=== PATIENT | male | born 1965 | race Caucasian/White ===

== ENCOUNTER 2023-05-19 12:30 | Inpatient (IN) ==
[2023-05-19] MEDS ORDERED: PIPERACILLIN/TAZOBACTAM 4.5 GM in DEXTROSE 5% 100 ML IV ONE (13:33)
--- NOTE | 2023-05-19 13:34 | Emergency Department Note ---
Impression & Plan Complicated UTI (urinary tract infection), Hyponatremia, Thrombocytopenia, Cerebral palsy ED Provider Note NAME: BOBBI MAYA AGE: 57 SEX: M : 1965 ARRIVES VIA: Walk-In INFORMANT: Patient, ED PROVIDER(S): Kenji Brown MD CHIEF COMPLAINT: Abnormal outpatient urinalysis, DrSuha Referral MEDICAL DECISION MAKING: Patient presents for the above. I did review the patient's outpatient urine culture which showed ESBL. This is sensitive to ertapenem meropenem and Zosyn. The patient was ordered blood work blood cultures and a dose of IV Zosyn. To believe the patient would benefit from inpatient treatment given his chronic care needs complicated UTI and physical capacity. The patient does require significant care.Blood work shows mild leukopenia with mild anemia hemoglobin of 13. Thrombocytopenia at 89. The patient has had low platelet count in the past. Kidney function unremarkable with hyponatremia 133. Prior /Outside records reviewed: I reviewed the patient's most recent urine culture which does show ESBL that is only sensitive to ertapenem, meropenem and Zosyn Differential diagnosis: Complicated UTI, cystitis, pyelonephritis, pneumonia, bronchitis, electrolyte abnormality, dehydration among others were considered Diagnostics, as interpreted by me: ECG: None Cardiac monitoring: An order was placed for continuous cardiac monitoring. The monitor shows a rate of 77 with sinus rhythm. Patient was placed on pulse oximetry Medical decision rules: none Imaging studies: See below HPI: Patient presents with caregiver at bedside. Patient does have a known history of CP and is wheelchair-bound. The patient reportedly had some routine blood work and urine completed as an outpatient was called today to inform them that the urinalysis had an infection in it. They were told that they needed to come to the emergency department for antibiotics. The caregiver at bedside states that the patient has not had any change in symptoms. He does have a G- tube in place. Patient is wheelchair-bound and does not take anything by mouth. No reported falls or trauma. PAST MEDICAL HISTORY: See Below PAST SURGICAL HISTORY: See Below SOCIAL HISTORY: See Below HOME MEDICATIONS: See Below ALLERGIES: See Below VITALS: See Below PHYSICAL EXAMINATION: GENERAL: NAD, non-toxic. Wearing glasses. EYE EXAM: Normal conjunctiva. PERRL, no anisocoria and EOM's grossly intact w/o pain. OROPHARYNX: Moist mucus membranes, grossly normal dentition. NECK: Supple, no nuchal rigidity, no adenopathy, non-tender. No signs of meningismus. FROM of the neck with good chin to chest and neck extension. No stridor. LUNGS: Coarse breath sounds. Normal chest wall mechanics. HEART: NSR, no MRG. ABDOMEN: Abdomen soft, G-tube in the upper abdomen. Non-tender, no masses, no rebound or guarding. BACK: No CVA TTP. SKIN: No rashes and no bruising. UPPER EXTREMITIES: Upper extremities are grossly normal. LOWER EXTREMITIES: Grossly normal, no edema. NEURO EXAM: Awake and alert. Follows basic commands. Past Med/Surg History Medical History Cerebral palsy Epilepsy Feeding by G-tube GERD (gastroesophageal reflux disease) HLD (hyperlipidemia) Hypothyroidism Kidney stones Nocturnal hypoxia Recurrent UTI Thrombocytopenia Social History Smoking Status: Never smoker Second Hand Exposure: No; Hx Alcohol Use: No Hx Substance Use: No Preferred Language: Com[place]an Visual Impairment: Limited Hearing Ability: Hard of Hearing Beliefs That Will Affect Care: None marital status: Single current occupational status: unemployed Feels Safe at Home: Yes Diet: other Diet Comment: Feeding tube caffeine: No Dental Care, Regularly: Yes Physical Activity Frequency: Does not Exercise Seatbelt Use: always Allergies Allergies Allergy/AdvReac Type Severity Reaction Status Date / Time NSAIDS (Non-Steroidal AdvReac Unknown HX OF GI Verified 05/19/23 14:51 Anti-Inflamma BLEED Home Meds Home Medications Medication Instructions Recorded Confirmed OMEPRAZOLE 2MG/ML 40 mg G-tube BID 03/29/23 05/19/23 QC TUSSIN CF SYRUP 5 ml feeding tube Q4H PRN RUNNY 03/29/23 05/19/23 NOSE/COLDS SURECARE PRO UNDERWEAR XXL 03/29/23 05/06/23 acetaminophen 325 mg tablet 650 mg feeding tube Q6H PRN fever 03/29/23 05/19/23 or pain acetaminophen 650 mg rectal 650 mg TN Q6H PRN fever or pain 03/29/23 05/19/23 suppository alfuzosin 10 mg tablet,extended 10 mg QAM 03/29/23 05/19/23 release 24 hr bisacodyl 10 mg rectal suppository 10 mg TN DAILY PRN constipation 03/29/23 05/19/23 (Dulcolax (bisacodyl)) budesonide 0.5 mg/2 mL suspension 0.5 mg inhalation BID SOB 03/29/23 05/19/23 for nebulization citalopram 10 mg/5 mL oral solution 20 mg feeding tube HS DEPRESSION 03/29/23 05/19/23 lactulose 10 gram/15 mL oral 20 g feeding tube QAM CONSTIPATION 03/29/23 05/19/23 solution methenamine hippurate 1 gram tablet 1 g feeding tube BID BLADDER 03/29/23 05/19/23 phenobarbital 64.8 mg tablet 64.8 mg feeding tube HS SEIZURES 03/29/23 05/19/23 polyethylene glycol 3350 17 gram 17 g feeding tube QAM CONSTIPATION 03/29/23 05/19/23 oral powder packet valproic acid (as sodium salt) 250 500 mg feeding tube QDL MOOD 03/29/23 05/19/23 mg/5 mL oral solution valproic acid (as sodium salt) 250 750 mg PO BID MOOD 03/29/23 05/19/23 mg/5 mL oral solution atorvastatin 40 mg tablet 40 mg feeding tube HS CHOLESTEROL 05/19/23 05/19/23 dextromethorphan-guaifenesin 10 5 ml PO Q4H PRN COUGH/CONGESTION 05/19/23 05/19/23 mg-100 mg/5 mL oral syrup (Siltussin-DM) electrolytes-dextrose oral 170 ml feeding tube 5XD PRN UPSET 05/19/23 05/19/23 solution (Pedialyte oral solution) STOMACH/VOMITING--SEE NOTE furosemide 40 mg tablet 40 mg feeding tube QAM EDEMA 05/19/23 05/19/23 glycopyrrolate 1 mg tablet 1 mg feeding tube TID STOMACH 05/19/23 05/19/23 lactose-reduced food with fiber 237 ea feeding tube 5XD 05/19/23 05/19/23 0.06 gram-1.5 kcal/mL oral liquid (Jevity 1.5 Orlin) levothyroxine 200 mcg tablet 200 mcg feeding tube DAILYBB 05/19/23 05/19/23 THYROID levothyroxine 25 mcg tablet 25 mcg feeding tube DAILYBB THYROID 05/19/23 05/19/23 loratadine 10 mg tablet 10 mg feeding tube QAM ALLERGIES 05/19/23 05/19/23 metoclopramide HCl 10 mg tablet 10 mg feeding tube QID 05/19/23 05/19/23 montelukast 10 mg tablet 10 mg feeding tube HS asthma 05/19/23 05/19/23 [id number] gluconate 9 15 ml feeding tube QAM SUPPLEMENT 05/19/23 05/19/23 mg iron/15 mL (15 mL) oral liquid (Multi-Patrice) water 60 ea 5XD 05/19/23 05/19/23 zinc oxide 13 % topical cream 1 applic topical BID 05/19/23 05/19/23 Previous Rx's Medication Instructions Recorded 2xl pull up briefs #1 ea 03/29/23 Shaun-Hawthorne Gastrostomy Feeding Tube #1 ea 03/29/23 Suction Machine, Canisters, #1 ea 03/29/23 Tubing, and Yankeur 2x2 drain sponges #1 ea 04/08/23 2xl tabbed attends #1 ea 04/08/23 Disposable chucks #1 ea 04/08/23 Hospital Bed Mattress #1 ea 04/08/23 Hospital bed with 4 railings #1 ea 04/08/23 Jam Lift and extra sling #1 ea 04/08/23 Lymphedema boots #1 ea 04/08/23 Shaun-Hawthorne Bolus Feed Extension set #1 ea 04/08/23 Mouth Swabs #1 ea 04/08/23 Nebulizer Machine, Mask, Tubing #1 ea 04/08/23 Oxygen Concentrator, Nasal #1 ea 04/08/23 Cannulas, Water Bottles SURECARE BRIEF XL #1 ea 04/08/23 XL shena w/ handles for #1 ea 04/08/23 repositioning washable chucks #1 04/08/23 Results & Data (ED) Vital Signs Vital Signs - 24 hr 05/19/23 12:45 05/19/23 14:50 Temperature 36.6 C Temperature Source Temporal Artery Scan Pulse Rate 83 Pulse Rate [Finger] 74 Respiratory Rate 16 16 Respiratory Effort / Characteristics Non-Labored Non-Labored Spontaneous Respiratory Depth Normal Normal Respiratory Pattern Regular Blood Pressure 133/84 Blood Pressure [Right Arm] 163/92 H Blood Pressure Mean 100 Blood Pressure Mean [Right Arm] 115 Pulse Oximetry 93 95 Oxygen Delivery Method Room Air Room Air Sepsis Recent Fever Within 48 Hours No Sepsis New/Unexplained Change in Mental Status No Sepsis Action Taken by Nursing No Action Required Home Medications Current Medication List: was personally reviewed by me Laboratory Data Attestation: I reviewed the patient's lab results. 05/19/23 13:30 05/19/23 13:30 Lab Results 05/19/23 05/19/23 Range/Units 13:30 13:30 WBC 3.67 L (4.8-10.8) K/ul RBC 4.37 L (4.70-6.10) M/uL Hgb 13.2 L (14.0-18.0) g/dl Hct 39.2 L (42.0-52.0) % MCV 89.7 (80.0-100.0) fL MCH 30.2 (25.0-34.0) pg MCHC 33.7 (32.0-36.0) g/dL RDW Std Deviation 44.9 (36.4-46.3) fL RDW Coeff of Diane 13.8 (11.5-14.5) % Plt Count 89 L (130-400) K/uL MPV 14.5 H (9.4-12.4) fL Immature Gran % (Auto) 0.3 % Neut % (Auto) 67.2 % Lymph % (Auto) 18.0 % [place] % (Auto) 13.1 % Eos % (Auto) 1.1 % Baso % (Auto) 0.3 % Neut # (Auto) 2.47 (1.40-6.50) K/uL Lymph # (Auto) 0.66 L (1.2-3.4) K/uL [place] # (Auto) 0.48 (0.11-0.59) K/uL Eos # (Auto) 0.04 (0-0.50) K/uL Baso # (Auto) 0.01 (0-0.2) K/uL Immature Gran # (Auto) 0.01 (0.01-0.20) K/uL Sodium 133 L (136-145) mmol/L Potassium 4.0 (3.5-5.1) mmol/L Chloride 97 L (98-107) mmol/L Carbon Dioxide 31 (21-32) mmol/L Anion Gap 5 (3-11) BUN 18 (6-23) mg/dl Creatinine 0.48 L (0.6-1.4) mg/dl Est Cr Clr Drug Dosing Not Reportable Est GFR ( Amer) 143.8 ml/min Est GFR (Non-Af Amer) 124.1 ml/min BUN/Creatinine Ratio 37.5 H (10-20) Glucose 93 (70-99(Fasting)) mg/dl Calcium 9.3 (8.6-10.3) mg/dl Total Bilirubin 0.3 (0.2-1.0) mg/dl AST 16 (13-39) U/L ALT 11 (7-52) U/L Alkaline Phosphatase 72 (34-104) U/L Total Protein 7.2 (6.0-8.3) gm/dl Albumin 3.5 (3.4-5.0) gm/dl Globulin 3.7 (2.5-4.0) gm/dl Albumin/Globulin Ratio 0.9 (0.9-2) Administered Medications Discontinued Medications Piperacillin Sod/Tazobactam (Sod 4.5 gm/ Dextrose) 120 mls @ 200 mls/hr IV NOW ONE; Protocol Stop: 05/19/23 14:08 Last Infusion: 05/19/23 14:52 Dose: 0 mls/hr Documented By: Admin: 05/19/23 14:09 Dose: 200 mls/hr Documented By: RUPAL Ertapenem (Invanz) 10 mls @ 2 mls/min IV NOW STA Stop: 05/19/23 14:27 Last Admin: 05/19/23 14:46 Dose: Not Given Documented By: RUPAL Discharge Plan Visit Data Chief Complaint: Urinary Symptoms Stated Complaint: URINARY TRACT INFECTION - REFERRED BY MD ED Provider: Kenji Brown Discharge Problem: Complicated UTI (urinary tract infection), Hyponatremia, Thrombocytopenia, Ce rebral palsy Forms Stand Alone Forms: [facility] Prescriptions Prescriptions: No Action budesonide 0.5 mg/2 mL suspension for nebulization 0.5 mg inhalation BID Rx Instructions: DAILY AT 08:00, DAILY AT 20:00 citalopram 10 mg/5 mL solution 20 mg feeding tube HS Rx Instructions: GIVE 10ML (20MG) VIA G-TUBE ONCE DAILY AT BEDTIME FOR DEPRESSION *USE STOPPERS* DAILY AT 20:00 lactulose 10 gram/15 mL solution 20 g feeding tube QAM Rx Instructions: TAKE 30mL (20GM)VIA G-TUBE ONCE DAILY FOR CONSTIPATION. DAILY AT 08:00 methenamine hippurate 1 gram tablet 1 g feeding tube BID Rx Instructions: TAKE 1 TABLET VIA G-TUBE TWICE DAILY FOR BLADDER. DAILY AT 08:00 AND DAILY 20:00 OMEPRAZOLE 2MG/ML liquid 40 mg G-tube BID Rx Instructions: GIVE 20ML VIA G-TUBE BID. DAILY AT 08:00 AND DAILY AT 20:00 polyethylene glycol 3350 17 gram powder in packet 17 g feeding tube QAM Rx Instructions: MIX 1 CAPFUL (17CM) WITH 8OZ OF WATER AND GIVE VIA PEG ONCE DAILY FOR CONSTIPATION DAILY AT 08:00 valproic acid (as sodium salt) 250 mg/5 mL solution 500 mg feeding tube QDL Rx Instructions: GIVE 10ML VIA G-TUBE ONCE DAILY AT NOON FOR MOOD DAILY AT 12:00 valproic acid (as sodium salt) 250 mg/5 mL solution 750 mg PO BID Rx Instructions: GIVE 15ML VIA G-TUBE TWICE DAILY IN THE AM AND EVENING FOR MOOD DAILY AT 08:00 AND AT 20:00 acetaminophen 650 mg suppository 650 mg TN Q6H PRN (Reason: fever or pain) Rx Instructions: INSERT 1 SUPPOSITORY RECTALLY EVERY 6 HOURS NEEDED FOR PAIN OR FEVER MAX 3GM APAP/24HRS bisacodyl [Dulcolax (bisacodyl)] 10 mg suppository 10 mg TN DAILY PRN (Reason: constipation) Rx Instructions: INSERT 1 SUPPOSITORY RECTALLY EVERY 4TH NIGHT NEEDED FOR CONSTIPATION REPEAT IN 24HOURS IF NO BOWEL MOVEMENT QC TUSSIN CF SYRUP 5 ml feeding tube Q4H PRN (Reason: RUNNY NOSE/COLDS) Rx Instructions: GIVE 5mL via G-tube every 4 hours as needed for runny nose,colds. DO NOT USE WITH SANDRA HUTCHISON [place] [place] SURECARE PRO UNDERWEAR XXL See Rx Instructions .Route .MEDSUPPLY Rx Instructions: USE 3-4 TIMES DAILY 4PK/CS (DME) Shaun-Hawthorne Gastrostomy Feeding Tube See Rx Instructions .Route .MEDSUPPLY Qty: 1 0RF Rx Instructions: As directed (DME) Suction Machine, Canisters, Tubing, and Yankeur See Rx Instructions .Route .MEDSUPPLY Qty: 1 0RF Rx Instructions: As directed ([facility] [place]) 2xl pull up briefs See Rx Instructions .Route .MEDSUPPLY Qty: 1 0RF Rx Instructions: As directed acetaminophen 325 mg tablet 650 mg feeding tube Q6H MDD 3 GRAMS APAP/24 HOURS PRN (Reason: fever or pain) Rx Instructions: TAKE 2 TABLETS VIA G-TUBE EVERY 6 HOURS NEEDED FOR PAIN OR FEVER >100F ORAL/ TYMPANICE OR >99F AXILLARY MAX 3GM APAP/24HRS *CRUSHED* alfuzosin 10 mg tablet extended release 24 hr 10 mg QAM Rx Instructions: CRUSHED VIA FEEDING TUBE. phenobarbital 64.8 mg tablet 64.8 mg feeding tube HS Rx Instructions: TAKE 1 TABLET VIA G-TUBE ONCE DAILY AT 20:00 *CRUSHED* ([facility] [place]) Hospital bed with 4 railings See Rx Instructions .Route .MEDSUPPLY Qty: 1 0RF Rx Instructions: Pt needs to keep all 4 railings up on bed to help with repositioning. Will need checked on every 1 hour. ([facility] [place]) 2x2 drain sponges See Rx Instructions .Route .MEDSUPPLY Qty: 1 0RF Rx Instructions: As directed ([facility] [place]) 2xl tabbed attends See Rx Instructions .Route .MEDSUPPLY Qty: 1 0RF Rx Instructions: As directed ([facility] [place]) Disposable chucks See Rx Instructions .Route .MEDSUPPLY Qty: 1 0RF Rx Instructions: As directed ([facility] [place]) Hospital Bed Mattress See Rx Instructions .Route .MEDSUPPLY Qty: 1 0RF Rx Instructions: As directed ([facility] [place]) Jam Lift and extra sling See Rx Instructions .Route .MEDSUPPLY Qty: 1 0RF Rx Instructions: As directed ([facility] [place]) Lymphedema boots See Rx Instructions .Route .MEDSUPPLY Qty: 1 0RF Rx Instructions: As directed ([facility] [place]) Shaun-Hawthorne Bolus Feed Extension set See Rx Instructions .Route .MEDSUPPLY Qty: 1 0RF Rx Instructions: As directed ([facility] [place]) Mouth Swabs See Rx Instructions .Route .MEDSUPPLY Qty: 1 0RF Rx Instructions: As directed ([facility] [place]) Oxygen Concentrator, Nasal Cannulas, Water Bottles See Rx Instructions .Route .MEDSUPPLY Qty: 1 0RF Rx Instructions: As directed ([facility] [place]) Nebulizer Machine, Mask, Tubing See Rx Instructions .Route .MEDSUPPLY Qty: 1 0RF Rx Instructions: As directed (DME) XL shena w/ handles for repositioning See Rx Instructions .Route .MEDSUPPLY Qty: 1 0RF Rx Instructions: As directed (DME) washable chucks See Rx Instructions .Route .MEDSUPPLY Qty: 1 0RF Rx Instructions: As directed (DME) SURECARE BRIEF XL See Rx Instructions .Route .MEDSUPPLY Qty: 1 0RF Rx Instructions: USE 3-4 TIMES DAILY 5PK/CS dextromethorphan-guaifenesin [Siltussin-DM] 10-100 mg/5 mL Syrup 5 ml PO Q4H PRN (Reason: COUGH/CONGESTION) water Liquid 60 ea 5XD Rx Instructions: VIA G-TUBE 60 ML AT 0000, 0800, 1200, 1600 & 2000 Desitin Rapid Relief 13 % Cream 1 applic TOPICAL BID glycopyrrolate 1 mg tablet 1 mg feeding tube TID Rx Instructions: 0800, 1600, & 2000 furosemide 40 mg tablet 40 mg feeding tube QAM Rx Instructions: TAKE 1 TABLET VIA G-TUBE ONCE DAILY FOR EDEMA DAILY AT 08:00 *CRUSHED* atorvastatin 40 mg tablet 40 mg feeding tube HS Rx Instructions: *CRUSHED* Jevity 1.5 Orlin 0.06 gram-1.5 kcal/mL liquid 237 ea feeding tube 5XD Rx Instructions: via feeding tube DAILY AT 00:00, 08:00, 12:00, 16:00, 20:00; Give Jevity 1.5, 237ml 5 times daily. Free water flushes of 60ml before and 60ml after each feeding. electrolytes-dextrose [Pedialyte] Solution 170 ml feeding tube 5XD PRN (Reason: UPSET STOMACH/VOMITING--SEE NOTE) Rx Instructions: GIVE 170 ML VIA G-TUBE 5 XDAILY FOR 24 HOURS, THEN 90 ML 5XDAILY FOR NEXT 24 HOURS. levothyroxine 25 mcg tablet 25 mcg feeding tube DAILYBB Rx Instructions: TAKE 1 TABLET VIA G-TUBE ONCE DAILY FOR THYROID- TAKE WITH 200MCG. DAILY AT 05:00 *CRUSHED* montelukast 10 mg tablet 10 mg feeding tube HS Rx Instructions: take 1 tablet via g-tube once daily in the evenings for asthma DAILY AT 20:00 *CRUSHED* levothyroxine 200 mcg tablet 200 mcg feeding tube DAILYBB Rx Instructions: TAKE 1 TAB VIA G-TUBE ONCE DAILY FOR THYROID DAILY AT 05:00 *CRUSHED* loratadine 10 mg tablet 10 mg feeding tube QAM Rx Instructions: TAKE 1 TABLET VIA G-TUBE ONCE DAILY FOR ALLERGIES. DAILY AT 08:00 *CRUSHED* metoclopramide HCl 10 mg tablet 10 mg feeding tube QID Rx Instructions: TAKE 1 TABLET VIA G-TUBE FOUR TIMES DAILY AT 8AM, 12PM, 4PM, AND 8PM FOR STOMACH *CRUSHED* smnuwvpp-ple-qxouazp gluconate [Multi-Patrice] 9 mg iron/ 15 mL (15 mL) liquid 15 ml feeding tube QAM Rx Instructions: GIVE 15mL VIA G-TUBE ONCE DAILY FOR SUPPLEMENT DAILY AT 08:00 Referrals Referrals: Eva Lin DO [Primary Care Provider] -
[2023-05-19 13:57] LABS: Basophils # (auto) 0.01 K/uL (0-0.2); Basophils % (auto) 0.3 %; Eosinophils # (auto) 0.04 K/uL (0-0.50); Eosinophils % (auto) 1.1 %; Hematocrit (blood only) 39.2 % (42.0-52.0); Hemoglobin 13.2 g/dl (14.0-18.0); Immature Granulocytes # (auto) 0.01 K/uL (0.01-0.20); Immature Granulocytes % (auto) 0.3 %; Lymphocytes # (auto) 0.66 K/uL (1.2-3.4); Mean Corpuscular Hemoglobin 30.2 pg (25.0-34.0); Mean Corpuscular Hgb Conc 33.7 g/dL (32.0-36.0); Mean Corpuscular Volume 89.7 fL (80.0-100.0); Mean Platelet Volume 14.5 fL (9.4-12.4); Monocytes # (auto) 0.48 K/uL (0.11-0.59); Monocytes % (auto) 13.1 %; Neutrophils # (auto) 2.47 K/uL (1.40-6.50); Neutrophils % (auto) 67.2 %; Platelet Count 89 K/uL (130-400); RDW Coefficient of Variation 13.8 % (11.5-14.5); RDW Standard Deviation 44.9 fL (36.4-46.3); Red Blood Count 4.37 M/uL (4.70-6.10); White Blood Count 3.67 K/ul (4.8-10.8)
[2023-05-19 14:18] LABS: Alanine Aminotransferase 11 U/L (7-52); Albumin Globulin Ratio 0.9 (0.9-2); Albumin Level 3.5 gm/dl (3.4-5.0); Alkaline Phosphatase 72 U/L (34-104); Anion Gap 5 (3-11); BUN Creatinine Ratio 37.5 (10-20); Bilirubin,Total 0.3 mg/dl (0.2-1.0); Blood Urea Nitrogen 18 mg/dl (6-23); Calcium 9.3 mg/dl (8.6-10.3); Carbon Dioxide 31 mmol/L (21-32); Chloride 97 mmol/L (98-107); Est GFR (African American) 143.8 ml/min; Est GFR (Non-African American) 124.1 ml/min; Globulin 3.7 gm/dl (2.5-4.0); Glucose 93 mg/dl (70-99(Fasting)); Sodium 133 mmol/L (136-145); Total Protein 7.2 gm/dl (6.0-8.3)
[2023-05-19] MEDS ORDERED: ERTAPENEM SODIUM 10 ML IV STA (14:23)
[2023-05-19 14:28] LABS: Aspartate Aminotransferase 16 U/L (13-39)
--- NOTE | 2023-05-19 14:44 | History & Physical Report ---
Date of Service May 19, 2023 Assessment & Plan (1) Complicated UTI (urinary tract infection): Plan: Complicated UTI, history of recurrent UTIs Leukopenic, thrombocytopenic at baseline UA 05/17 resulted ESBL Klebsiella, sensitive to Zosyn, ertapenem, meropenem. E mpirically treated with Zosyn,? Fosfomycin for discharge Patient with increased voiding frequency, small volume voids No fever/chills. Nontoxic on assessment. 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 Platelets have been relatively stable, patient is continued on valproic acid for seizure prevention No active bleeding, continue to monitor - Heparin for DVT PPx deferred Epilepsy Stable, pending establishing with local neurology as outpatient No recent seizures in the last year. Continued on home valproic acid, phenobarbital Seizure precautions Ativan 2 mg every 5 minutes up to 3 doses per episode if acute seizure develops Chronic hyponatremia Resolved at prior 05/06 follow-up Currently mildly hyponatremic, trend daily. Reduce free water flushes if needed/contract Hypothyroidism Continue Synthroid GERD PPI continued CP, G-tube placement Mostly wheelchair-bound, does not ambulate. Max assist for transfers Fall precautions [place] precautions Continue feedings through PEG tube. Continue free water flush 60 cc 5 times daily Nocturnal hypoxia Chronically on 1 L of oxygen at night Disposition: Medical surgical Diet: N.p.o., feeds through G-tube CODE STATUS: DNR/DNI. In the event of an emergency notify skilled facility Laure is primary point of contact available at [phone] for decision making (2) Cerebral palsy: (3) Feeding by G-tube: (4) Thrombocytopenia: (5) Epilepsy: (6) Kidney stones: History of Present Illness Primary Care Provider: DO Bryce Garcia is a 57-year-old male with a past medical history of cerebral palsy, G-tube feeding, hypothyroidism, GERD, hyperlipidemia, epilepsy, and kidney stones who presents for urinary symptoms and ESBL UTI. Bharathi was seen as an outpatient for increased frequency of low volume voids, this grew out ESBL was recommended to come into the hospital for further treatment. Due to his medical complexity, neutropenia, high needs was recommended for initial observation overnight rather than treatment with fosfomycin and discharged home. Case was discussed with skilled facility who due to their challenges with sepsis and limited resources request that he be observed overnight for stability prior to discharge back to their facility. History is limited due to CP. Bryce is nondistressed and does not appear toxic at the bedside. Case was discussed with his editorial writer who recently received guardianship of Bryce, and know if any emergencies develop while his sister/niece sometimes help with decision making the point of contact should be the skilled facility nurse Laure available at [phone]. Per editorial writer with Bryce they note that he has not had any seizures recently, no fevers, does not seem distressed or having chills. He has had increased frequency of voids in the last week, this happens sometimes but they are with less volume in the last week than normal. Otherwise have not noticed any new symptoms. Meds reconciled by list provided at time of admission. He does have a history of thrombocytopenia and leukopenia which is pending follow-up with oncology Dr. Doty as outpatient. He is also pending outpatient visit with [facility] neurology for a past history of seizures, caseworkers not sure when his last seizure was only that he has not had any since coming to their facility approximately a year ago. Medical History: Reviewed Medications: Reviewed Surgical History: Reviewed Family history: Reviewed Allergies: Reviewed Social History: Reviewed, no substance use Code Status: DNR/DNI, patient has a living will confirming Allergies Allergy/AdvReac Type Severity Reaction Status Date / Time NSAIDS (Non-Steroidal AdvReac Unknown HX OF GI Verified 05/19/23 14:51 Anti-Inflamma BLEED Home Medications Medication Instructions Recorded Confirmed Type 2xl pull up briefs #1 ea 03/29/23 05/06/23 Rx Shaun-Hawthorne Gastrostomy Feeding Tube #1 ea 03/29/23 05/06/23 Rx OMEPRAZOLE 2MG/ML 40 mg G-tube BID 03/29/23 05/19/23 History QC TUSSIN CF SYRUP 5 ml feeding tube Q4H PRN RUNNY 03/29/23 05/19/23 History NOSE/COLDS SURECARE PRO UNDERWEAR XXL 03/29/23 05/06/23 History Suction Machine, Canisters, #1 ea 03/29/23 05/06/23 Rx Tubing, and Yankeur acetaminophen 325 mg tablet 650 mg feeding tube Q6H PRN fever 03/29/23 05/19/23 History or pain acetaminophen 650 mg [address] Q6H PRN fever or pain 03/29/23 05/19/23 History suppository alfuzosin 10 mg tablet,extended 10 mg QAM 03/29/23 05/19/23 History release 24 hr bisacodyl 10 mg rectal suppository [address] DAILY PRN constipation 03/29/23 05/19/23 History (Dulcolax (bisacodyl)) budesonide 0.5 mg/2 mL suspension 0.5 mg inhalation BID SOB 03/29/23 05/19/23 History for nebulization citalopram 10 mg/5 mL oral solution 20 mg feeding tube HS DEPRESSION 03/29/23 05/19/23 History lactulose 10 gram/15 mL oral 20 g feeding tube QAM CONSTIPATION 03/29/23 05/19/23 History solution methenamine hippurate 1 gram tablet 1 g feeding tube BID BLADDER 03/29/23 05/19/23 History phenobarbital 64.8 mg tablet 64.8 mg feeding tube HS SEIZURES 03/29/23 05/19/23 History polyethylene glycol 3350 17 gram 17 g feeding tube QAM CONSTIPATION 03/29/23 05/19/23 History oral powder packet valproic acid (as sodium salt) 250 500 mg feeding tube QDL MOOD 03/29/23 05/19/23 History mg/5 mL oral solution valproic acid (as sodium salt) 250 750 mg PO BID MOOD 03/29/23 05/19/23 History mg/5 mL oral solution 2x2 drain sponges #1 ea 04/08/23 05/06/23 Rx 2xl tabbed attends #1 ea 04/08/23 05/06/23 Rx Disposable chucks #1 ea 04/08/23 05/06/23 Rx Hospital Bed Mattress #1 ea 04/08/23 05/06/23 Rx Hospital bed with 4 railings #1 ea 04/08/23 05/06/23 Rx Jam Lift and extra sling #1 ea 04/08/23 05/06/23 Rx Lymphedema boots #1 ea 04/08/23 05/06/23 Rx Shaun-Hawthorne Bolus Feed Extension set #1 ea 04/08/23 05/06/23 Rx Mouth Swabs #1 ea 04/08/23 05/06/23 Rx Nebulizer Machine, Mask, Tubing #1 ea 04/08/23 05/06/23 Rx Oxygen Concentrator, Nasal #1 ea 04/08/23 05/06/23 Rx Cannulas, Water Bottles SURECARE BRIEF XL #1 ea 04/08/23 05/06/23 Rx XL shena w/ handles for #1 ea 04/08/23 05/06/23 Rx repositioning washable chucks #1 ea 04/08/23 05/06/23 Rx atorvastatin 40 mg tablet 40 mg feeding tube HS CHOLESTEROL 05/19/23 05/19/23 History dextromethorphan-guaifenesin 10 5 ml PO Q4H PRN COUGH/CONGESTION 05/19/23 05/19/23 History mg-100 mg/5 mL oral syrup (Siltussin-DM) electrolytes-dextrose oral 170 ml feeding tube 5XD PRN UPSET 05/19/23 05/19/23 History solution (Pedialyte oral solution) STOMACH/VOMITING--SEE NOTE furosemide 40 mg tablet 40 mg feeding tube QAM EDEMA 05/19/23 05/19/23 History glycopyrrolate 1 mg tablet 1 mg feeding tube TID STOMACH 05/19/23 05/19/23 History lactose-reduced food with fiber 237 ea feeding tube 5XD 05/19/23 05/19/23 History 0.06 gram-1.5 kcal/mL oral liquid (Jevity 1.5 Orlin) levothyroxine 200 mcg tablet 200 mcg feeding tube DAILYBB 05/19/23 05/19/23 History THYROID levothyroxine 25 mcg tablet 25 mcg feeding tube DAILYBB THYROID 05/19/23 05/19/23 History loratadine 10 mg tablet 10 mg feeding tube QAM ALLERGIES 05/19/23 05/19/23 History metoclopramide HCl 10 mg tablet 10 mg feeding tube QID 05/19/23 05/19/23 History montelukast 10 mg tablet 10 mg feeding tube HS asthma 05/19/23 05/19/23 History knidgord-ajgj-swzlmca gluconate 9 15 ml feeding tube QAM SUPPLEMENT 05/19/23 05/19/23 History mg iron/15 mL (15 mL) oral liquid (Multi-Patrice) water 60 ea 5XD 05/19/23 05/19/23 History zinc oxide 13 % topical cream 1 applic topical BID 05/19/23 05/19/23 History Past Med/Surg History Medical History (Updated 05/19/23 @ 15:29 by Sandip Kuhn MD) Cerebral palsy Epilepsy Feeding by G-tube GERD (gastroesophageal reflux disease) HLD (hyperlipidemia) Hypothyroidism Kidney stones Nocturnal hypoxia Recurrent UTI Thrombocytopenia Social History (Updated 03/29/23 @ 09:08 by Yesi Meza LPN) Smoking Status: Never smoker Second Hand Exposure: No; Hx Alcohol Use: No Hx Substance Use: No Preferred Language: Luxembourgish Visual Impairment: Limited Hearing Ability: Hard of Hearing Beliefs That Will Affect Care: None marital status: Single current occupational status: unemployed Feels Safe at Home: Yes Diet: other Diet Comment: Feeding tube caffeine: No Dental Care, Regularly: Yes Physical Activity Frequency: Does not Exercise Seatbelt Use: always Physical Exam Physical Exam: General: Communication limited by intellectual disability. No acute distress HEENT: Atraumatic, vision and hearing grossly intact Pulm: Diminished, but without overt wheezes/rales symmetrical chest rise. No increased work of breathing. No respiratory distress. Cardiac: RRR, -mrg. Radial pulses intact and symmetrical. Abdominal: Nontender, nondistended, soft. BS present. PEG tube present Extremities: CP. Exam limited by intellectual disability Results & Data Results & Data Vital Signs (Past 12 Hours) Vital Signs Temp Pulse Resp BP Pulse Ox O2 Del Method 05/19/23 12:45 36.6 C 83 16 133/84 93 Room Air PG Care Time/CCT Total # of Minutes Spent Total Time Spent with Patient: Total time spent is greater than 50% in coordination of care (as documented) at patient's floor/unit and/or counseling patient: Coding Level of Care Code 95893 INT INP/OBS CARE 3/75MIN Diagnoses Complicated UTI (urinary tract infection) N39.0 Cerebral palsy G80.9 Feeding by G-tube Z93.1 Thrombocytopenia D69.6 Epilepsy G40.909 Kidney stones N20.0
[2023-05-19 16:45] LABS: Adenovirus PCR Not Detected (NotDetected); Bordetella parapertussis PCR Not Detected (NotDetected); Bordetella pertussis PCR Not Detected (NotDetected); Chlamydia pneumoniae PCR Not Detected (NotDetected); Coronavirus 229E PCR Not Detected (NotDetected); Coronavirus CoV-2 (COVID19)PCR Not Detected (NotDetected); Coronavirus HKU1 PCR Not Detected (NotDetected); Coronavirus NL63 PCR Not Detected (NotDetected); Coronavirus OC43PCR Not Detected (NotDetected); Human Metapneumovirus PCR Not Detected (NotDetected); Influenza A PCR Not Detected (NotDetected); Influenza B PCR Not Detected (NotDetected); Mycoplasma pneumoniae PCR Not Detected (NotDetected); Parainfluenza Virus 1 PCR Not Detected (NotDetected); Parainfluenza Virus 2 PCR Not Detected (NotDetected); Parainfluenza Virus 3 PCR Not Detected (NotDetected); Parainfluenza Virus 4 PCR Not Detected (NotDetected); Respiratory Syncytial VirusPCR Not Detected (NotDetected); Rhinovirus/Enterovirus PCR Not Detected (NotDetected)
[2023-05-19] MEDS: Patient's HEIGHT &/or WEIGHT Needed SCH ×4 (17:39→23:15)
[2023-05-19] MEDS ORDERED: guaiFENesin/DEXTROM SYRUP 100MG/10MG 5ML UDC PO PRN (18:07)
[2023-05-19] MEDS ORDERED: bisacodyL 10 MG SUPP PR PRN (18:07)
[2023-05-19] MEDS: BUDESONIDE 0.5 MG/2 ML VIAL (PULMICORT) NEB SCH (19:08)
[2023-05-19 20:27] LABS: Appearance Urine Clear (Clear); Bacteria Urine Automated Negative (Negative); Bilirubin Urine Negative (Negative); Blood Urine Negative (Negative); Cast Urine Automated 0 /lpf (0-5); Color Urine Dark Yellow; Glucose Urine UA Negative (Negative); Ketones Urine Trace (Negative); Leukocyte Esterase Urine 1+ (Negative); Nitrite Urine Negative (Negative); Protein Urine Negative (Negative); RBC Urine Automated 0-4 /hpf (0-4); Specific Gravity Urine 1.024 (1.000-1.030); Urobilinogen Urine Negative (Negative)
[2023-05-19] MEDS ORDERED: PHENobarbitaL 20 MG/5 ML PO SCH (21:00)
[2023-05-19] MEDS: PIPERACILLIN/TAZOBACTAM 4.5 GM in DEXTROSE 5% 100 ML IV SCH (22:36)
[2023-05-19] MEDS: METOCLOPRAMIDE HCL 10 MG TABLET PEG SCH ×2 (22:39→22:49)
[2023-05-19] MEDS: TUBE FEEDING WATER FLUSH GT SCH (22:39)
[2023-05-19] MEDS: ATORVASTATIN 40 MG TAB PEG SCH (22:47)
[2023-05-19] MEDS: GLYCOPYRROLATE 1 MG TAB PO SCH (22:48)
[2023-05-19] MEDS: MONTELUKAST SODIUM 10 MG TABLET PEG SCH (22:48)
[2023-05-19] MEDS: LANSOPRAZOLE 30 MG SOLTAB PO SCH (22:48)
[2023-05-19] MEDS: CITALOPRAM 20 MG TAB PEG SCH (22:48)
[2023-05-19] MEDS: VALPROIC ACID SOLN 250 MG/5 ML UDC PEG SCH (22:49)
[2023-05-19] MEDS: PHENobarbitaL 20 MG/5 ML PO SCH (22:49)
[2023-05-19] MEDS: VALPROIC ACID SOLN 500 MG/10 ML UDC PEG SCH (22:49)
[2023-05-20] MEDS: TUBE FEEDING WATER FLUSH GT SCH ×6 (01:09→23:57)
[2023-05-20] MEDS ORDERED: ACETAMINOPHEN 1,000 MG/100 ML VIAL IV STA (01:28)
[2023-05-20] MEDS ORDERED: METOCLOPRAMIDE HCL INJ 5 MG/ML 2 ML VIAL IV ONE (03:41)
[2023-05-20] MEDS: PIPERACILLIN/TAZOBACTAM 4.5 GM in DEXTROSE 5% 100 ML IV SCH ×3 (03:57→21:25)
[2023-05-20] MEDS ORDERED: STAT IV Infusion **Titration per Protocol STA (06:02)
[2023-05-20] MEDS ORDERED: LORazepam 50 MG in D5W 250ML IN *POLYOLEFIN BAG* 25 ML IV SCH (06:15)
[2023-05-20] MEDS: BUDESONIDE 0.5 MG/2 ML VIAL (PULMICORT) NEB SCH ×2 (07:08→19:23)
[2023-05-20 07:26] LABS: Basophils # (auto) 0.01 K/uL (0-0.2); Basophils % (auto) 0.3 %; Eosinophils # (auto) 0.07 K/uL (0-0.50); Eosinophils % (auto) 1.8 %; Hematocrit (blood only) 37.6 % (42.0-52.0); Hemoglobin 12.6 g/dl (14.0-18.0); Immature Granulocytes # (auto) 0.01 K/uL (0.01-0.20); Immature Granulocytes % (auto) 0.3 %; Lymphocytes # (auto) 0.77 K/uL (1.2-3.4); Lymphocytes % (auto) 19.4 %; Mean Corpuscular Hemoglobin 30.1 pg (25.0-34.0); Mean Corpuscular Hgb Conc 33.5 g/dL (32.0-36.0); Mean Platelet Volume 14.2 fL (9.4-12.4); Monocytes # (auto) 0.54 K/uL (0.11-0.59); Monocytes % (auto) 13.6 %; Neutrophils # (auto) 2.56 K/uL (1.40-6.50); Neutrophils % (auto) 64.6 %; Platelet Count 75 K/uL (130-400); RDW Coefficient of Variation 13.9 % (11.5-14.5); RDW Standard Deviation 45.5 fL (36.4-46.3); Red Blood Count 4.18 M/uL (4.70-6.10); White Blood Count 3.96 K/ul (4.8-10.8)
[2023-05-20 07:45] LABS: BUN Creatinine Ratio 30.8 (10-20); Calcium 9.2 mg/dl (8.6-10.3); Creatinine Clr Calc Pharmacy 169.2 ml/min; Est GFR (African American) 139.1 ml/min; Est GFR (Non-African American) 120.1 ml/min; Potassium 4.1 mmol/L (3.5-5.1)
[2023-05-20] MEDS: GLYCOPYRROLATE 1 MG TAB PO SCH ×3 (09:19→21:29)
[2023-05-20] MEDS: LANSOPRAZOLE 30 MG SOLTAB PO SCH ×2 (09:20→21:31)
[2023-05-20] MEDS: POLYETHYLENE (MIRALAX) 17 GM PACK PEG SCH (09:21)
[2023-05-20] MEDS: LEVOTHYROXINE SODIUM 25 MCG TABLET PEG SCH (09:22)
[2023-05-20] MEDS: LORATADINE 10 MG TAB PEG SCH (09:22)
[2023-05-20] MEDS: LEVOTHYROXINE SODIUM 200 MCG TABLET PEG SCH (09:22)
[2023-05-20] MEDS: MULTI VIT W/MINERALS LIQUID 15 ML UDP PEG SCH (09:23)
[2023-05-20] MEDS: METOCLOPRAMIDE HCL 10 MG TABLET PEG SCH ×4 (09:23→21:30)
[2023-05-20] MEDS: VALPROIC ACID SOLN 250 MG/5 ML UDC PEG SCH ×2 (09:24→21:38)
[2023-05-20] MEDS: LACTULOSE SYRUP 20 GM/30 ML UDC PEG SCH (09:25)
[2023-05-20] MEDS: VALPROIC ACID SOLN 500 MG/10 ML UDC PEG SCH ×3 (09:25→21:39)
[2023-05-20] MEDS: [UNRECOGNIZED DRUG - MIXTURE] PEG SCH ×4 (12:40→23:57)
--- NOTE | 2023-05-20 16:53 | Hospitalist Progress Note ---
Date of Service May 20, 2023 Assessment & Plan (1) Complicated UTI (urinary tract infection): Plan: ESBL Klebsiella isolated in urine. He currently is on Zosyn, day 2. There does not appear to be any oral option. He will receive intravenous Zosyn through May 23 and return to his personal assisted on May 24 barring any unforeseen complications. Blood cultures remain negative to date (2) Cerebral palsy: Plan: Severe. Supportive care (3) Feeding by G-tube: Plan: Stable. (4) Thrombocytopenia: Plan: Chronic. Serial labs (5) Epilepsy: Plan: Currently stable. Continue current antiepileptic medications Plan Hopeful return to personal assisted on May 24 Admission and Anticipated Discharge Date Admission Date: May 19, 2023 Subjective Alert. He has cerebral palsy and I cannot understand his speech. He appears in no acute distress. ESBL Klebsiella has been isolated in the urine. He is on in travenous Zosyn, day 2. There does not appear to be an oral option. He will receive intravenous Zosyn through May 23 and hopefully return to his personal assisted on May 24 barring any unforeseen complications. Platelet count is 75,000 and acceptable. Will follow daily. Review of Systems Review of Systems: The patient is unable to answer any questions regarding review of systems at this time Physical Exam Physical Exam: General-awake. Baseline cerebral palsy. No acute distress. No fevers HEENT-head atraumatic and normocephalic, pupils equal and reactive to light, extraocular muscles intact Neck-no lymphadenopathy or thyromegaly, trachea midline Chest-clear to auscultation percussion. No rales, wheezing or rhonchi Cardiac-regular rate and rhythm, normal S1 and S2 Abdomen-normal bowel sounds, nontender, no hepatosplenomegaly Extremities-multiple contractures. Neuro-baseline severe cerebral palsy Psych-cannot assess Results & Data Results & Data Vital Signs (Past 12 Hours) Vital Signs Temp Pulse Resp BP Pulse Ox O2 Del Method 05/20/23 15:30 36.4 C L 62 18 130/75 95 Room Air 05/20/23 07:56 36.3 C L 51 L 18 142/80 H 93 Room Air 05/20/23 07:09 54 L 16 95 Room Air Laboratory Results 05/20/23 06:33 05/20/23 06:33 PG Care Time/CCT Total # of Minutes Spent Total Time Spent with Patient: Total time spent is greater than 50% in coordination of care (as documented) at patient's floor/unit and/or counseling patient: Coding Level of Care Code 16534 SUB INP/OBS CARE 350MIN Diagnoses Complicated UTI (urinary tract infection) N39.0 Cerebral palsy G80.9 Feeding by G-tube Z93.1 Thrombocytopenia D69.6 Epilepsy G40.909
[2023-05-20] MEDS: CITALOPRAM 20 MG TAB PEG SCH (21:30)
[2023-05-20] MEDS: ATORVASTATIN 40 MG TAB PEG SCH (21:30)
[2023-05-20] MEDS: MONTELUKAST SODIUM 10 MG TABLET PEG SCH (21:38)
[2023-05-20] MEDS: PHENobarbitaL 20 MG/5 ML PO SCH (21:48)
[2023-05-21] MEDS: PIPERACILLIN/TAZOBACTAM 4.5 GM in DEXTROSE 5% 100 ML IV SCH ×3 (04:28→21:53)
[2023-05-21] MEDS: LEVOTHYROXINE SODIUM 200 MCG TABLET PEG SCH (05:44)
[2023-05-21] MEDS: LEVOTHYROXINE SODIUM 25 MCG TABLET PEG SCH (05:45)
[2023-05-21] MEDS: BUDESONIDE 0.5 MG/2 ML VIAL (PULMICORT) NEB SCH ×2 (07:32→19:53)
[2023-05-21 07:35] LABS: Basophils # (auto) 0.03 K/uL (0-0.2); Basophils % (auto) 0.7 %; Eosinophils % (auto) 2.2 %; Hematocrit (blood only) 37.1 % (42.0-52.0); Hemoglobin 12.6 g/dl (14.0-18.0); Immature Granulocytes # (auto) 0.01 K/uL (0.01-0.20); Immature Granulocytes % (auto) 0.2 %; Lymphocytes # (auto) 0.86 K/uL (1.2-3.4); Lymphocytes % (auto) 18.8 %; Mean Corpuscular Hemoglobin 30.2 pg (25.0-34.0); Mean Platelet Volume 13.9 fL (9.4-12.4); Monocytes # (auto) 0.63 K/uL (0.11-0.59); Monocytes % (auto) 13.8 %; Neutrophils # (auto) 2.94 K/uL (1.40-6.50); Neutrophils % (auto) 64.3 %; Platelet Count 86 K/uL (130-400); RDW Coefficient of Variation 13.9 % (11.5-14.5); RDW Standard Deviation 44.9 fL (36.4-46.3); Red Blood Count 4.17 M/uL (4.70-6.10); White Blood Count 4.57 K/ul (4.8-10.8)
[2023-05-21 08:01] LABS: BUN Creatinine Ratio 36.2 (10-20); Calcium 9.1 mg/dl (8.6-10.3); Creatinine Clr Calc Pharmacy 151.7 ml/min; Est GFR (Non-African American) 114.8 ml/min; Potassium 4.2 mmol/L (3.5-5.1)
[2023-05-21] MEDS: TUBE FEEDING WATER FLUSH GT SCH ×4 (08:13→21:55)
[2023-05-21] MEDS: [UNRECOGNIZED DRUG - MIXTURE] PEG SCH ×4 (08:13→21:55)
[2023-05-21] MEDS: LACTULOSE SYRUP 20 GM/30 ML UDC PEG SCH (08:14)
[2023-05-21] MEDS: GLYCOPYRROLATE 1 MG TAB PO SCH ×3 (08:14→21:59)
[2023-05-21] MEDS: VALPROIC ACID SOLN 250 MG/5 ML UDC PEG SCH ×2 (08:15→21:57)
[2023-05-21] MEDS: LORATADINE 10 MG TAB PEG SCH (08:15)
[2023-05-21] MEDS: MULTI VIT W/MINERALS LIQUID 15 ML UDP PEG SCH (08:15)
[2023-05-21] MEDS: VALPROIC ACID SOLN 500 MG/10 ML UDC PEG SCH ×3 (08:15→21:57)
[2023-05-21] MEDS: LANSOPRAZOLE 30 MG SOLTAB PO SCH ×2 (08:16→21:58)
[2023-05-21] MEDS: METOCLOPRAMIDE HCL 10 MG TABLET PEG SCH ×4 (08:16→21:57)
[2023-05-21] MEDS: POLYETHYLENE (MIRALAX) 17 GM PACK PEG SCH (08:20)
[2023-05-21] MEDS: ACETAMINOPHEN 325 MG TAB PO PRN ×2 (11:18→21:59)
--- NOTE | 2023-05-21 16:55 | Hospitalist Progress Note ---
Date of Service May 21, 2023 Assessment & Plan (1) Complicated UTI (urinary tract infection): Plan: ESBL Klebsiella isolated in urine. He currently is on Zosyn, day 3. There does not appear to be any oral option. He will receive intravenous Zosyn through May 23 and return to his personal prison on May 24 barring any unforeseen complications. Blood cultures remain negative to date (2) Cerebral palsy: Plan: Severe. Supportive care (3) Subconjunctival hemorrhage: Plan: Right eye. No treatment necessary (4) Feeding by G-tube: Plan: Stable. (5) Thrombocytopenia: Plan: Chronic. Serial labs (6) Epilepsy: Plan: Currently stable. Continue current antiepileptic medications Plan Hopeful return to personal prison on May 24 Admission and Anticipated Discharge Date Admission Date: May 20, 2023 Subjective Alert. He has now developed a right a Sub conjunctival hemorrhage. He is also complaining of right hip pain without any injury. We will treat symptomatically. Nothing needs to be done with the right eye at this time. He remains on intravenous Zosyn for the ESBL Klebsiella complicated UTI. He will remain on intravenous Zosyn through May 23 and return to the personal-prison on May 24. Review of Systems Review of Systems: The patient is unable to answer any questions regarding review of systems at this time Physical Exam Physical Exam: General-awake. Baseline cerebral palsy. No acute distress. No fevers HEENT-head atraumatic and normocephalic, pupils equal and reactive to light, extraocular muscles intact. Small lateral subconjunctival hemorrhage right eye Neck-no lymphadenopathy or thyromegaly, trachea midline Chest-clear to auscultation percussion. No rales, wheezing or rhonchi Cardiac-regular rate and rhythm, normal S1 and S2 Abdomen-normal bowel sounds, nontender, no hepatosplenomegaly Extremities-multiple contractures. Neuro-baseline severe cerebral palsy Psych-cannot assess Results & Data Results & Data Vital Signs (Past 12 Hours) Vital Signs Temp Pulse Resp BP Pulse Ox O2 Del Method 05/21/23 07:32 60 20 94 Room Air 05/21/23 07:15 Room Air 05/21/23 07:00 37 C 67 18 129/82 94 Room Air Laboratory Results 05/21/23 06:56 05/21/23 06:56 PG Care Time/CCT Total # of Minutes Spent Total Time Spent with Patient: Total time spent is greater than 50% in coordination of care (as documented) at patient's floor/unit and/or counseling patient: Coding Level of Care Code 64746 SUB INP/OBS CARE 235MIN Diagnoses Complicated UTI (urinary tract infection) N39.0 Cerebral palsy G80.9 Subconjunctival hemorrhage H11.30 Feeding by G-tube Z93.1 Thrombocytopenia D69.6 Epilepsy G40.909
[2023-05-21] MEDS: PHENobarbitaL 20 MG/5 ML PO SCH (21:55)
[2023-05-21] MEDS: CITALOPRAM 20 MG TAB PEG SCH (21:58)
[2023-05-21] MEDS: ATORVASTATIN 40 MG TAB PEG SCH (21:58)
[2023-05-21] MEDS: MONTELUKAST SODIUM 10 MG TABLET PEG SCH (21:58)
[2023-05-22] MEDS: [UNRECOGNIZED DRUG - MIXTURE] PEG SCH ×6 (00:31→23:35)
[2023-05-22] MEDS: TUBE FEEDING WATER FLUSH GT SCH ×6 (00:31→23:35)
[2023-05-22] MEDS: PIPERACILLIN/TAZOBACTAM 4.5 GM in DEXTROSE 5% 100 ML IV SCH ×3 (03:52→20:00)
[2023-05-22] MEDS: LEVOTHYROXINE SODIUM 200 MCG TABLET PEG SCH (05:46)
[2023-05-22] MEDS: LEVOTHYROXINE SODIUM 25 MCG TABLET PEG SCH (05:46)
[2023-05-22] MEDS: BUDESONIDE 0.5 MG/2 ML VIAL (PULMICORT) NEB SCH ×2 (07:09→19:34)
[2023-05-22 07:54] LABS: Basophils # (auto) 0.02 K/uL (0-0.2); Basophils % (auto) 0.4 %; Eosinophils # (auto) 0.06 K/uL (0-0.50); Eosinophils % (auto) 1.2 %; Hematocrit (blood only) 38.7 % (42.0-52.0); Hemoglobin 13.1 g/dl (14.0-18.0); Lymphocytes # (auto) 0.89 K/uL (1.2-3.4); Lymphocytes % (auto) 18.3 %; Mean Corpuscular Hemoglobin 30.2 pg (25.0-34.0); Mean Corpuscular Hgb Conc 33.9 g/dL (32.0-36.0); Mean Corpuscular Volume 89.2 fL (80.0-100.0); Mean Platelet Volume 13.8 fL (9.4-12.4); Monocytes # (auto) 0.74 K/uL (0.11-0.59); Monocytes % (auto) 15.2 %; Neutrophils # (auto) 3.16 K/uL (1.40-6.50); Neutrophils % (auto) 64.9 %; Platelet Count 85 K/uL (130-400); RDW Coefficient of Variation 13.9 % (11.5-14.5); RDW Standard Deviation 45.2 fL (36.4-46.3); Red Blood Count 4.34 M/uL (4.70-6.10); White Blood Count 4.87 K/ul (4.8-10.8)
[2023-05-22 08:17] LABS: Calcium 9.3 mg/dl (8.6-10.3); Est GFR (African American) 138.1 ml/min; Est GFR (Non-African American) 119.1 ml/min; Potassium 3.9 mmol/L (3.5-5.1)
[2023-05-22] MEDS: ACETAMINOPHEN 325 MG TAB PO PRN ×2 (08:43→16:30)
[2023-05-22] MEDS: VALPROIC ACID SOLN 500 MG/10 ML UDC PEG SCH ×3 (08:44→20:05)
[2023-05-22] MEDS: VALPROIC ACID SOLN 250 MG/5 ML UDC PEG SCH ×2 (08:45→20:06)
[2023-05-22] MEDS: LACTULOSE SYRUP 20 GM/30 ML UDC PEG SCH (08:45)
[2023-05-22] MEDS: METOCLOPRAMIDE HCL 10 MG TABLET PEG SCH ×4 (08:46→20:04)
[2023-05-22] MEDS: LANSOPRAZOLE 30 MG SOLTAB PO SCH ×2 (08:46→20:04)
[2023-05-22] MEDS: MULTI VIT W/MINERALS LIQUID 15 ML UDP PEG SCH (08:47)
[2023-05-22] MEDS: GLYCOPYRROLATE 1 MG TAB PO SCH ×3 (08:47→20:03)
[2023-05-22] MEDS: LORATADINE 10 MG TAB PEG SCH (08:48)
[2023-05-22] MEDS: POLYETHYLENE (MIRALAX) 17 GM PACK PEG SCH (08:49)
--- NOTE | 2023-05-22 13:06 | Hospitalist Progress Note ---
Date of Service May 22, 2023 Assessment & Plan (1) Complicated UTI (urinary tract infection): Plan: ESBL Klebsiella isolated in urine. He currently is on Zosyn, day 4. There does not appear to be any oral option. He will receive intravenous Zosyn through May 23 and return to his personal nursing home on May 24 barring any unforeseen complications. Blood cultures remain negative to date (2) Cerebral palsy: Plan: With functional quadriplegia. Severe. Supportive care (3) Subconjunctival hemorrhage: Plan: Right eye. No treatment necessary (4) Feeding by G-tube: Plan: Stable. (5) Thrombocytopenia: Plan: Chronic. Serial labs (6) Epilepsy: Plan: Currently stable. Continue current antiepileptic medications Plan Anticipated return to personal nursing home on May 24 Admission and Anticipated Discharge Date Admission Date: May 20, 2023 Subjective Alert. Caregiver is at the bedside. Zosyn day 4. He will finish his Zosyn therapy tomorrow and return to personal nursing home on May 24. He has developed loose stools from the antibiotics. C. difficile toxin assay ordered and probiotic added. Platelet count low but stable at 85,000. Review of Systems Review of Systems: The patient is unable to answer any questions regarding review of systems at this time Physical Exam Physical Exam: General-awake. Baseline cerebral palsy. No acute distress. No fevers HEENT-head atraumatic and normocephalic, pupils equal and reactive to light, ext raocular muscles intact. Small lateral subconjunctival hemorrhage right eye Neck-no lymphadenopathy or thyromegaly, trachea midline Chest-clear to auscultation percussion. No rales, wheezing or rhonchi Cardiac-regular rate and rhythm, normal S1 and S2 Abdomen-normal bowel sounds, nontender, no hepatosplenomegaly Extremities-multiple contractures. Neuro-baseline severe cerebral palsy Psych-cannot assess Results & Data Results & Data Vital Signs (Past 12 Hours) Vital Signs Temp Pulse Resp BP Pulse Ox O2 Del Method 05/22/23 07:55 Room Air 05/22/23 07:43 36.9 C 59 L 16 165/85 H 93 Room Air 05/22/23 07:10 59 L 22 92 Room Air Laboratory Results 05/22/23 07:32 05/22/23 07:32 PG Care Time/CCT Total # of Minutes Spent Total Time Spent with Patient: Total time spent is greater than 50% in coordination of care (as documented) at patient's floor/unit and/or counseling patient: Coding Level of Care Code 71834 SUB INP/OBS CARE 350MIN Diagnoses Complicated UTI (urinary tract infection) N39.0 Cerebral palsy G80.9 Subconjunctival hemorrhage H11.30 Feeding by G-tube Z93.1 Thrombocytopenia D69.6 Epilepsy G40.909
[2023-05-22] MEDS ORDERED: ADVANCED PROBIOTIC 1250 MG CAPSULE PO SCH (13:15)
[2023-05-22] MEDS: LACTOBACILLUS ACIDOPHILUS 1 GM PACK PO SCH (13:57)
[2023-05-22] MEDS: PROTEIN SUPPLEMENT PEG SCH ×2 (15:45→21:43)
[2023-05-22] MEDS: ATORVASTATIN 40 MG TAB PEG SCH (20:02)
[2023-05-22] MEDS: CITALOPRAM 20 MG TAB PEG SCH (20:03)
[2023-05-22] MEDS: MONTELUKAST SODIUM 10 MG TABLET PEG SCH (20:04)
[2023-05-22] MEDS: PHENobarbitaL 20 MG/5 ML PO SCH (21:42)
[2023-05-22] MEDS ORDERED: guaiFENesin 600 MG TABCR PO STA (23:03)
[2023-05-22] MEDS ORDERED: ALBUT/IPRATROP 3MG/0.5MG NEB 3 ML VIAL NEB STA (23:03)
[2023-05-22] MEDS ORDERED: guaiFENesin SUGAR FREE 100 MG/5 ML UDC GT STA (23:26)
[2023-05-23] MEDS: PIPERACILLIN/TAZOBACTAM 4.5 GM in DEXTROSE 5% 100 ML IV SCH ×3 (03:37→22:56)
[2023-05-23] MEDS: LEVOTHYROXINE SODIUM 25 MCG TABLET PEG SCH (05:46)
[2023-05-23] MEDS: PROTEIN SUPPLEMENT PEG SCH ×3 (05:46→23:23)
[2023-05-23] MEDS: LEVOTHYROXINE SODIUM 200 MCG TABLET PEG SCH (05:46)
[2023-05-23] MEDS: BUDESONIDE 0.5 MG/2 ML VIAL (PULMICORT) NEB SCH ×2 (07:41→19:47)
[2023-05-23] MEDS: TUBE FEEDING WATER FLUSH GT SCH ×4 (09:05→23:04)
[2023-05-23] MEDS: [UNRECOGNIZED DRUG - MIXTURE] PEG SCH ×4 (09:05→23:04)
[2023-05-23] MEDS: LACTOBACILLUS ACIDOPHILUS 1 GM PACK PO SCH (09:06)
[2023-05-23] MEDS: MULTI VIT W/MINERALS LIQUID 15 ML UDP PEG SCH (09:06)
[2023-05-23] MEDS: LANSOPRAZOLE 30 MG SOLTAB PO SCH ×2 (09:06→21:23)
[2023-05-23] MEDS: LORATADINE 10 MG TAB PEG SCH (09:08)
[2023-05-23] MEDS: LACTULOSE SYRUP 20 GM/30 ML UDC PEG SCH (09:11)
[2023-05-23] MEDS: GLYCOPYRROLATE 1 MG TAB PO SCH ×3 (09:11→21:23)
[2023-05-23] MEDS: VALPROIC ACID SOLN 500 MG/10 ML UDC PEG SCH ×3 (09:12→21:24)
[2023-05-23] MEDS: VALPROIC ACID SOLN 250 MG/5 ML UDC PEG SCH ×2 (09:12→21:23)
[2023-05-23] MEDS: METOCLOPRAMIDE HCL 10 MG TABLET PEG SCH ×4 (09:12→22:32)
[2023-05-23] MEDS: POLYETHYLENE (MIRALAX) 17 GM PACK PEG SCH (09:14)
--- NOTE | 2023-05-23 15:01 | Hospitalist Progress Note ---
Date of Service May 23, 2023 Assessment & Plan (1) Complicated UTI (urinary tract infection): Plan: ESBL Klebsiella isolated in urine. He currently is on Zosyn, day 5. There does not appear to be any oral option. He will receive intravenous Zosyn through May 23 and return to his personal custodial on May 24 barring any unforeseen complications. Blood cultures remain negative to date (2) Cerebral palsy: Plan: With functional quadriplegia. Severe. Supportive care (3) Subconjunctival hemorrhage: Plan: Right eye. No treatment necessary. Resolved (4) Feeding by G-tube: Plan: Stable. (5) Thrombocytopenia: Plan: Chronic. Serial labs (6) Epilepsy: Plan: Currently stable. Continue current antiepileptic medications Plan Anticipated return to personal custodial on May 24 Admission and Anticipated Discharge Date Admission Date: May 20, 2023 Subjective Alert. No new problems. He continues to point to the right lower quadrant area but there are no significant physical findings in this area. He will complete his Zosyn therapy today. Return to personal custodial tomorrow, May 24 Review of Systems Review of Systems: The patient is unable to answer any questions regarding review of systems at this time Physical Exam Physical Exam: General-awake. Baseline cerebral palsy. No acute distress. No fevers HEENT-head atraumatic and normocephalic, pupils equal and reactive to light, extraocular muscles intact. Small lateral subconjunctival hemorrhage right eye Neck-no lymphadenopathy or thyromegaly, trachea midline Chest-clear to auscultation percussion. No rales, wheezing or rhonchi Cardiac-regular rate and rhythm, normal S1 and S2 Abdomen-normal bowel sounds, nontender, no hepatosplenomegaly Extremities-multiple contractures. Neuro-baseline severe cerebral palsy Psych-cannot assess Results & Data Results & Data Vital Signs (Past 12 Hours) Vital Signs Temp Pulse Resp BP Pulse Ox O2 Del Method FiO2 05/23/23 14:16 36.5 C 64 16 126/82 94 Room Air 05/23/23 09:58 Room Air 05/23/23 07:41 67 15 93 Room Air 21 05/23/23 07:20 36.5 C 63 16 124/80 94 Room Air Laboratory Results 05/22/23 07:32 05/22/23 07:32 PG Care Time/CCT Total # of Minutes Spent Total Time Spent with Patient: Total time spent is greater than 50% in coordination of care (as documented) at patient's floor/unit and/or counseling patient: Coding Level of Care Code 57195 SUB INP/OBS CARE 2/35MIN Diagnoses Complicated UTI (urinary tract infection) N39.0 Cerebral palsy G80.9 Subconjunctival hemorrhage H11.30 Feeding by G-tube Z93.1 Thrombocytopenia D69.6 Epilepsy G40.909
[2023-05-23] MEDS: CITALOPRAM 20 MG TAB PEG SCH (21:23)
[2023-05-23] MEDS: ATORVASTATIN 40 MG TAB PEG SCH (21:23)
[2023-05-23] MEDS: MONTELUKAST SODIUM 10 MG TABLET PEG SCH (21:23)
[2023-05-23] MEDS: PHENobarbitaL 20 MG/5 ML PO SCH (22:33)
[2023-05-24] MEDS: ACETAMINOPHEN 325 MG TAB PO PRN (02:38)
[2023-05-24] MEDS: [UNRECOGNIZED DRUG - MIXTURE] PEG SCH ×3 (02:45→11:22)
[2023-05-24] MEDS: TUBE FEEDING WATER FLUSH GT SCH ×3 (02:45→11:22)
[2023-05-24] MEDS: PIPERACILLIN/TAZOBACTAM 4.5 GM in DEXTROSE 5% 100 ML IV SCH (04:26)
[2023-05-24] MEDS: PROTEIN SUPPLEMENT PEG SCH (06:41)
[2023-05-24] MEDS: BUDESONIDE 0.5 MG/2 ML VIAL (PULMICORT) NEB SCH (07:50)
[2023-05-24] MEDS: LEVOTHYROXINE SODIUM 200 MCG TABLET PEG SCH (08:10)
[2023-05-24] MEDS: LEVOTHYROXINE SODIUM 25 MCG TABLET PEG SCH (08:11)
[2023-05-24] MEDS: POLYETHYLENE (MIRALAX) 17 GM PACK PEG SCH (09:09)
[2023-05-24] MEDS: METOCLOPRAMIDE HCL 10 MG TABLET PEG SCH ×2 (09:15→12:23)
[2023-05-24] MEDS: VALPROIC ACID SOLN 250 MG/5 ML UDC PEG SCH (09:18)
[2023-05-24] MEDS: GLYCOPYRROLATE 1 MG TAB PO SCH (09:19)
[2023-05-24] MEDS: LACTOBACILLUS ACIDOPHILUS 1 GM PACK PO SCH (09:19)
[2023-05-24] MEDS: LORATADINE 10 MG TAB PEG SCH (09:19)
[2023-05-24] MEDS: LACTULOSE SYRUP 20 GM/30 ML UDC PEG SCH (09:19)
[2023-05-24] MEDS: LANSOPRAZOLE 30 MG SOLTAB PO SCH (09:20)
[2023-05-24] MEDS: VALPROIC ACID SOLN 500 MG/10 ML UDC PEG SCH ×2 (09:20→11:23)
[2023-05-24] MEDS: MULTI VIT W/MINERALS LIQUID 15 ML UDP PEG SCH (09:21)
--- NOTE | 2023-05-24 10:07 | Discharge Summary ---
Date of Service May 24, 2023 Admission HPI Per Admitting Provider Bryce is a 57-year-old male with a past medical history of cerebral palsy, G-tube feeding, hypothyroidism, GERD, hyperlipidemia, epilepsy, and kidney stones who presents for urinary symptoms and ESBL UTI. Bharathi was seen as an outpatient for increased frequency of low volume voids, this grew out ESBL was recommended to come into the hospital for further treatment. Due to his medical complexity, neutropenia, high needs was recommended for initial observation overnight rather than treatment with fosfomycin and discharged home. Case was discussed with skilled facility who due to their challenges with sepsis and limited resources request that he be observed overnight for stability prior to discharge back to their facility. History is limited due to CP. Bryce is nondistressed and does not appear toxic at the bedside. Case was discussed with his green feed attendant who recently received guardianship of Bryce, and know if any emergencies develop while his sister/niece sometimes help with decision making the point of contact should be the skilled facility nurse Laure available at [phone]. Per green feed attendant with Bryce they note that he has not had any seizures recently, no fevers, does not seem distressed or having chills. He has had increased frequency of voids in the last week, this happens sometimes but they are with less volume in the last week than normal. Otherwise have not noticed any new symptoms. Meds reconciled by list provided at time of admission. He does have a history of thrombocytopenia and leukopenia which is pending follow-up with oncology Dr. Doty as outpatient. He is also pending outpatient visit with [facility] neurolog[facility] for a past history of seizures, caseworkers not sure when his last seizure was only that he has not had any since coming to their facility approximately a year ago. Medical History: Reviewed Medications: Reviewed Surgical History: Reviewed Family history: Reviewed Allergies: Reviewed Social History: Reviewed, no substance use Code Status: DNR/DNI, patient has a living will confirming Principal Diagnosis ESBL Klebsiella UTI Discharge Exam General-awake. Baseline cerebral palsy. No acute distress. No fevers HEENT-head atraumatic and normocephalic, pupils equal and reactive to light, extraocular muscles intact. Small lateral subconjunctival hemorrhage right eye Neck-no lymphadenopathy or thyromegaly, trachea midline Chest-clear to auscultation percussion. No rales, wheezing or rhonchi Cardiac-regular rate and rhythm, normal S1 and S2 Abdomen-normal bowel sounds, nontender, no hepatosplenomegaly Extremities-multiple contractures. Neuro-baseline severe cerebral palsy Psych-cannot assess Discharge Data Allergies Allergy/AdvReac Type Severity Reaction Status Date / Time NSAIDS (Non-Steroidal AdvReac Unknown HX OF GI Verified 05/19/23 14:51 Anti-Inflamma BLEED Consultations 05/19/23 14:44 ED Decision to Admit Stat Hospital Course (1) Complicated UTI (urinary tract infection): ESBL Klebsiella isolated in urine. He received 5 days of intravenous Zosyn therapy. Blood cultures remain negative (2) Cerebral palsy: With functional quadriplegia. Severe. Supportive care (3) Subconjunctival hemorrhage: Right eye. No treatment necessary. Resolved (4) Feeding by G-tube: Stable. (5) Thrombocytopenia: Chronic. Serial labs (6) Epilepsy: Currently stable. Continue current antiepileptic medications Plan Discharge to personal-halfway todayMay 24 Total Time Total Time Spent Total Time Spent (In Minutes): 40 minutes Discharge Plan Discharge Items Patient Disposition: Personal Group Home Reason For Visit: ESBL UTI Discharge Diagnosis: ESBL Klebsiella UTI Activity: Resume your previous activity Non-emergency contact: Primary Care Provider Call non-emergency contact if: your symptoms worsen Follow-up/Referrals: Eva Lin DO [Primary Care Provider] - Diet: Nothing by Mouth Diet Comment: Continue PEG tube feedings as before Addtl Attending Provider Instructions: No new medications at this time Pending Studies at Discharge: No Stand-Alone Forms: My [email or web address], Smoking Cessation Skilled Items Patient informed of condition?: Yes DNR: Yes Discharge Level of Care: Other Communicable Disease: No Discharge Prognosis: Stable Lines: None Urinary Catheter: No Medications and DC Order Prescriptions: Continued OMEPRAZOLE 2MG/ML liquid 40 mg G-tube BID Qty: 500 0RF Rx Instructions: GIVE 20ML VIA G-TUBE BID. DAILY AT 08:00 AND DAILY AT 20:00 budesonide 0.5 mg/2 mL suspension for nebulization 0.5 mg inhalation BID Qty: 120 1RF Rx Instructions: DAILY AT 08:00, DAILY AT 20:00 citalopram 10 mg/5 mL solution 20 mg feeding tube HS Qty: 473 1RF Rx Instructions: GIVE 10ML (20MG) VIA G-TUBE ONCE DAILY AT BEDTIME FOR DEPRESSION *USE STOPPERS* DAILY AT 20:00 lactulose 10 gram/15 mL solution 20 g feeding tube QAM Rx Instructions: TAKE 30mL (20GM)VIA G-TUBE ONCE DAILY FOR CONSTIPATION. DAILY AT 08:00 methenamine hippurate 1 gram tablet 1 g feeding tube BID Rx Instructions: TAKE 1 TABLET VIA G-TUBE TWICE DAILY FOR BLADDER. DAILY AT 08:00 AND DAILY 20:00 polyethylene glycol 3350 17 gram powder in packet 17 g feeding tube QAM Rx Instructions: MIX 1 CAPFUL (17CM) WITH 8OZ OF WATER AND GIVE VIA PEG ONCE DAILY FOR CONSTIPATION DAILY AT 08:00 valproic acid (as sodium salt) 250 mg/5 mL solution 500 mg feeding tube QDL Rx Instructions: GIVE 10ML VIA G-TUBE ONCE DAILY AT NOON FOR MOOD DAILY AT 12:00 valproic acid (as sodium salt) 250 mg/5 mL solution 750 mg PO BID Rx Instructions: GIVE 15ML VIA G-TUBE TWICE DAILY IN THE AM AND EVENING FOR MOOD DAILY AT 08:00 AND AT 20:00 acetaminophen 650 mg suppository 650 mg SD Q6H PRN (Reason: fever or pain) Rx Instructions: INSERT 1 SUPPOSITORY RECTALLY EVERY 6 HOURS NEEDED FOR PAIN OR FEVER MAX 3GM APAP/24HRS bisacodyl [Dulcolax (bisacodyl)] 10 mg suppository 10 mg SD DAILY PRN (Reason: constipation) Rx Instructions: INSERT 1 SUPPOSITORY RECTALLY EVERY 4TH NIGHT NEEDED FOR CONSTIPATION REPEAT IN 24HOURS IF NO BOWEL MOVEMENT QC TUSSIN CF SYRUP 5 ml feeding tube Q4H PRN (Reason: RUNNY NOSE/COLDS) Rx Instructions: GIVE 5mL via G-tube every 4 hours as needed for runny nose,colds. DO NOT USE WITH SANDRA HUTCHISON (DME) SURECARE PRO UNDERWEAR XXL See Rx Instructions .Route .MEDSUPPLY Rx Instructions: USE 3-4 TIMES DAILY 4PK/CS (DME) Shaun-Hawthorne Gastrostomy Feeding Tube See Rx Instructions .Route .MEDSUPPLY Qty: 1 0RF Rx Instructions: As directed (DME) Suction Machine, Canisters, Tubing, and Yankeur See Rx Instructions .Route .MEDSUPPLY Qty: 1 0RF Rx Instructions: As directed (DME) 2xl pull up briefs See Rx Instructions .Route .MEDSUPPLY Qty: 1 0RF Rx Instructions: As directed acetaminophen 325 mg tablet 650 mg feeding tube Q6H MDD 3 GRAMS APAP/24 HOURS PRN (Reason: fever or pain) Rx Instructions: TAKE 2 TABLETS VIA G-TUBE EVERY 6 HOURS NEEDED FOR PAIN OR FEVER >100F ORAL/ TYMPANICE OR >99F AXILLARY MAX 3GM APAP/24HRS *CRUSHED* alfuzosin 10 mg tablet extended release 24 hr 10 mg QAM Rx Instructions: CRUSHED VIA FEEDING TUBE. phenobarbital 64.8 mg tablet 64.8 mg feeding tube HS Rx Instructions: TAKE 1 TABLET VIA G-TUBE ONCE DAILY AT 20:00 *CRUSHED* ([facility] [place]) Hospital bed with 4 railings See Rx Instructions .Route .MEDSUPPLY Qty: 1 0RF Rx Instructions: Pt needs to keep all 4 railings up on bed to help with repositioning. Will need checked on every 1 hour. ([facility] [place]) 2x2 drain sponges See Rx Instructions .Route .MEDSUPPLY Qty: 1 0RF Rx Instructions: As directed ([facility] [place]) 2xl tabbed attends See Rx Instructions .Route .MEDSUPPLY Qty: 1 0RF Rx Instructions: As directed ([facility] [place]) Disposable chucks See Rx Instructions .Route .MEDSUPPLY Qty: 1 0RF Rx Instructions: As directed ([facility] [place]) Hospital Bed Mattress See Rx Instructions .Route .MEDSUPPLY Qty: 1 0RF Rx Instructions: As directed ([facility] [place]) Jam Lift and extra sling See Rx Instructions .Route .MEDSUPPLY Qty: 1 0RF Rx Instructions: As directed ([facility] [place]) Lymphedema boots See Rx Instructions .Route .MEDSUPPLY Qty: 1 0RF Rx Instructions: As directed ([facility] [place]) Shaun-Hawthorne Bolus Feed Extension set See Rx Instructions .Route .MEDSUPPLY Qty: 1 0RF Rx Instructions: As directed ([facility] [place]) Mouth Swabs See Rx Instructions .Route .MEDSUPPLY Qty: 1 0RF Rx Instructions: As directed ([facility] [place]) Oxygen Concentrator, Nasal Cannulas, Water Bottles See Rx Instructions .Route .MEDSUPPLY Qty: 1 0RF Rx Instructions: As directed ([facility] [place]) Nebulizer Machine, Mask, Tubing See Rx Instructions .Route .MEDSUPPLY Qty: 1 0RF Rx Instructions: As directed (DME) XL shena w/ handles for repositioning See Rx Instructions .Route .MEDSUPPLY Qty: 1 0RF Rx Instructions: As directed (DME) washable chucks See Rx Instructions .Route .MEDSUPPLY Qty: 1 0RF Rx Instructions: As directed (DME) SURECARE BRIEF XL See Rx Instructions .Route .MEDSUPPLY Qty: 1 0RF Rx Instructions: USE 3-4 TIMES DAILY 5PK/CS dextromethorphan-guaifenesin [Siltussin-DM] 10-100 mg/5 mL Syrup 5 ml PO Q4H PRN (Reason: COUGH/CONGESTION) water Liquid 60 ea 5XD Rx Instructions: VIA G-TUBE 60 ML AT 0000, 0800, 1200, 1600 & 2000 Desitin Rapid Relief 13 % Cream 1 applic TOPICAL BID glycopyrrolate 1 mg tablet 1 mg feeding tube TID Rx Instructions: 0800, 1600, & 2000 furosemide 40 mg tablet 40 mg feeding tube QAM Rx Instructions: TAKE 1 TABLET VIA G-TUBE ONCE DAILY FOR EDEMA DAILY AT 08:00 *CRUSHED* atorvastatin 40 mg tablet 40 mg feeding tube HS Rx Instructions: *CRUSHED* Jevity 1.5 Orlin 0.06 gram-1.5 kcal/mL liquid 237 ea feeding tube 5XD Rx Instructions: via feeding tube DAILY AT 00:00, 08:00, 12:00, 16:00, 20:00; Give Jevity 1.5, 237ml 5 times daily. Free water flushes of 60ml before and 60ml after each feeding. electrolytes-dextrose [Pedialyte] Solution 170 ml feeding tube 5XD PRN (Reason: UPSET STOMACH/VOMITING--SEE NOTE) Rx Instructions: GIVE 170 ML VIA G-TUBE 5 XDAILY FOR 24 HOURS, THEN 90 ML 5XDAILY FOR NEXT 24 HOURS. levothyroxine 25 mcg tablet 25 mcg feeding tube DAILYBB Rx Instructions: TAKE 1 TABLET VIA G-TUBE ONCE DAILY FOR THYROID- TAKE WITH 200MCG. DAILY AT 05:00 *CRUSHED* montelukast 10 mg tablet 10 mg feeding tube HS Rx Instructions: take 1 tablet via g-tube once daily in the evenings for asthma DAILY AT 20:00 *CRUSHED* levothyroxine 200 mcg tablet 200 mcg feeding tube DAILYBB Rx Instructions: TAKE 1 TAB VIA G-TUBE ONCE DAILY FOR THYROID DAILY AT 05:00 *CRUSHED* loratadine 10 mg tablet 10 mg feeding tube QAM Rx Instructions: TAKE 1 TABLET VIA G-TUBE ONCE DAILY FOR ALLERGIES. DAILY AT 08:00 *CRUSHED* metoclopramide HCl 10 mg tablet 10 mg feeding tube QID Rx Instructions: TAKE 1 TABLET VIA G-TUBE FOUR TIMES DAILY AT 8AM, 12PM, 4PM, AND 8PM FOR STOMACH *CRUSHED* [id number]-ttv-tjaicnw gluconate [Multi-Patrice] 9 mg iron/ 15 mL (15 mL) liquid 15 ml feeding tube QAM Rx Instructions: GIVE 15mL VIA G-TUBE ONCE DAILY FOR SUPPLEMENT DAILY AT 08:00 Discharge Orders: Discharge Order (Routine); Ordered 05/24/23 Ordered By: Jey Morales Admission Data Admit Date/Time: 05/20/23 18:50 Attending Provider: Jey Morales Admit Provider: Sandip Kuhn Primary Care Provider: Eva Lin Other Providers: Sandip Kuhn Coding Level of Care Code 43399 INP/OBS DISCH >30 MIN Diagnoses Complicated UTI (urinary tract infection) N39.0 Cerebral palsy G80.9 Subconjunctival hemorrhage H11.30 Feeding by G-tube Z93.1 Thrombocytopenia D69.6 Epilepsy G40.909
== END 2023-05-24 13:00 | disposition home or self-care (01) | DRG 689 ==
LOC: ED 12:30 → EDINP 12:30 → SUATTDRO 15:39 → 3W 18:08